=== PATIENT | female | born 1970 | race Caucasian/White ===

== ENCOUNTER 2016-11-12 21:41 | Emergency (ER) | payer SELFPAY ==
[~2016-11-12] VITALS: Ht 162.6 cm; Wt 85.0 kg
[~2016-11-12 21:41] MED LIST: AMOXICILLIN500 MG OR; AMOXIL500 MG OR; ANAPROX275 MG OR; ANTIVERT25 MG OR; ATARAX PO; CEPH500C57 OR; CEPHALEXIN500 MG OR; CIPRO500 MG OR; E.E.S. 400400 MG OR; FLEXERIL OR; FLEXERIL PO; FLONASE NASAL50 MCG; HYDROXYZ HCL25 MG OR; KEFLEX500 MG PO; LORTAB 10 OR; LORTAB 1010 MG PO; LORTAB 5 OR; LORTAB 7.5 OR; MOTRIN600 MG OR; NO HOME MEDS; OXYCO/APAP1 TA2 OR; PERCOCET 5/325M1 TAB OR; PREDNISONE20 MG PO; PROAIR HFA IN; PROVENTIL0.083 % IN; TESSALON PER100 MG PO; ULTRAM50 MG PO; XANAX0.25 MG OR; XANAX0.5 MG OR; XANAX1 MG OR; ZITHROMAX250 MG OR; ZITHROMAX250 MG PO; ZOFRAN ODT8 MG OR; [UNRECOGNIZED DRUG - OTHER] PO
[2016-11-12 22:32] LABS: HEMATOCRIT 37.9 % (37.0-47.0); HEMOGLOBIN 12.1 g/dl (12.0-16.0); IMMATURE GRANULOCYTES 0.3 % (0.0-1.0); MEAN CELL VOLUME 82.9 fL CALC (80.0-100.0); MEAN CORPUSCULAR HGB 26.5 pG CALC (26.0-32.0); MEAN CORPUSCULAR HGB CONC 31.9 g/L CALC (32.0-36.0); NEUT# 9.34 thou/uL (2.00-7.15); RED BLOOD COUNT 4.57 mill/uL (4.20-5.60); RED CELL DISTRI WIDTH 16.1 % (11.5-15.5); URINE BILIRUBIN - DIPSTICK NEGATIVE (NEGATIVE); URINE BLOOD DIPSTICK LARGE (NEGATIVE); URINE CLARITY CLEAR; URINE COLOR YELLOW; URINE GLUCOSE - DIPSTICK NEGATIVE (NEGATIVE); URINE KETONE NEGATIVE (NEGATIVE); URINE LEUK ESTERASE NEGATIVE (NEGATIVE); URINE NITRITE - DIPSTICK NEGATIVE (Negative); URINE PH 5.5 (4.5-8.0); URINE PROTEIN - DIPSTICK NEGATIVE (NEG-TRACE); URINE SPECIFIC GRAVITY <=1.005; URINE UROBILINOGEN - DIPSTICK 0.2 E.U./dL (0.2)
[2016-11-12 22:36] LABS: BARBITURATES NEGATIVE (NEGATIVE); COCAINE NEGATIVE (NEGATIVE); METHADONE NEGATIVE (NEGATIVE); OXCYCODONE NEGATIVE (NEGATIVE); TETRAHYDROCANNABIONOL NEGATIVE (NEGATIVE); TRICYLIC ANTIDEPRESSANTS NEGATIVE (NEGATIVE)
[2016-11-12 22:40] LABS: URINE RBC 25-50 RBC/hpf (0-5); URINE SQUAMOUS EPITHELIAL CELL FEW EPI/hpf (0-FEW)
[2016-11-12 23:04] LABS: ALBUMIN 4.2 g/dL (3.2-5.0); ALKALINE PHOSPHATASE 82 u/l (38-126); ANION GAP 13 (6-22 (CALC)); BILIRUBIN, TOTAL 0.4 mg/dL (0.0-1.4); BUN 11 mg/dL (7-17); BUN/CREATININE RATIO 17 (12-20 (CALC)); CALCIUM 9.3 mg/dL (8.4-10.2); CARBON DIOXIDE 24 mmol/l (22-30); CHLORIDE 106 mmol/l (95-108); CREATININE 0.6 mg/dL (0.5-1.0); GFR > 60 ML/MIN (>=60 (CALC)); GFR FOR AFR.AMER. > 60 ML/MIN (>=60 (CALC)); GLUCOSE 121 mg/dL (65-105); POTASSIUM 3.8 mmol/l (3.5-5.1); SGOT/AST 65 u/l (14-36); SGPT/ALT 39 u/l (9-52); SODIUM 138 mmol/l (137-146); TOTAL PROTEIN 7.9 g/dL (6.3-8.2)
[2016-11-12 23:16] LABS: MYOGLOBIN 72 ng/mL (0 - 62)
[2016-11-13 00:26] VITALS: BP 160/93
== END 2016-11-13 00:32 | disposition short-term general hospital (02) | DRG 282 ==
LOC: ED 21:41
PROVIDERS: Emergency Medicine
DX: I21.4 Non-ST elevation (NSTEMI) myocardial infarction (principal); M32.9 Systemic lupus erythematosus, unspecified; J45.909 Unspecified asthma, uncomplicated; F41.0 Panic disorder [episodic paroxysmal anxiety]; F17.210 Nicotine dependence, cigarettes, uncomplicated
CPT/HCPCS: J2060

== ENCOUNTER 2016-11-19 23:28 | Emergency (ER) | payer SELFPAY ==
[~2016-11-19] VITALS: Ht 162.6 cm; Wt 81.8 kg
[2016-11-20] MEDS ORDERED: LIPITOR80 M1 PO (00:04)
[2016-11-20] MEDS ORDERED: ASPIRIN81 MG PO (00:04)
[2016-11-20] MEDS ORDERED: METOPROL TAR25 MG PO (00:05)
[2016-11-20] MEDS ORDERED: LISINOPRIL10 MG PO (00:05)
[2016-11-20] MEDS ORDERED: BRILINTA90 MG PO (00:06)
[2016-11-20 00:43] LABS: HEMATOCRIT 33.3 % (37.0-47.0); HEMOGLOBIN 10.8 g/dl (12.0-16.0); IMMATURE GRANULOCYTES 0.3 % (0.0-1.0); MEAN CELL VOLUME 82.6 fL CALC (80.0-100.0); MEAN CORPUSCULAR HGB 26.8 pG CALC (26.0-32.0); MEAN CORPUSCULAR HGB CONC 32.4 g/L CALC (32.0-36.0); NEUT# 7.71 thou/uL (2.00-7.15); RED BLOOD COUNT 4.03 mill/uL (4.20-5.60); RED CELL DISTRI WIDTH 15.5 % (11.5-15.5)
[2016-11-20 00:44] LABS: URINE BILIRUBIN - DIPSTICK NEGATIVE (NEGATIVE); URINE BLOOD DIPSTICK NEGATIVE (NEGATIVE); URINE CLARITY CLEAR; URINE COLOR YELLOW; URINE GLUCOSE - DIPSTICK NEGATIVE (NEGATIVE); URINE KETONE NEGATIVE (NEGATIVE); URINE LEUK ESTERASE NEGATIVE (NEGATIVE); URINE NITRITE - DIPSTICK NEGATIVE (Negative); URINE PROTEIN - DIPSTICK NEGATIVE (NEG-TRACE); URINE SPECIFIC GRAVITY <=1.005; URINE UROBILINOGEN - DIPSTICK 0.2 E.U./dL (0.2)
[2016-11-20 00:47] LABS: BARBITURATES NEGATIVE (NEGATIVE); COCAINE NEGATIVE (NEGATIVE); METHADONE NEGATIVE (NEGATIVE); OXCYCODONE NEGATIVE (NEGATIVE); TETRAHYDROCANNABIONOL NEGATIVE (NEGATIVE); TRICYLIC ANTIDEPRESSANTS NEGATIVE (NEGATIVE)
[2016-11-20 01:15] LABS: ALBUMIN 4.1 g/dL (3.2-5.0); ALKALINE PHOSPHATASE 87 u/l (38-126); AMYLASE 95 u/l (30-110); ANION GAP 16 (6-22 (CALC)); BILIRUBIN, TOTAL 0.4 mg/dL (0.0-1.4); BUN 12 mg/dL (7-17); BUN/CREATININE RATIO 16 (12-20 (CALC)); CALCIUM 9.6 mg/dL (8.4-10.2); CARBON DIOXIDE 25 mmol/l (22-30); CHLORIDE 103 mmol/l (95-108); CREATININE 0.7 mg/dL (0.5-1.0); GFR > 60 ML/MIN (>=60 (CALC)); GFR FOR AFR.AMER. > 60 ML/MIN (>=60 (CALC)); GLUCOSE 101 mg/dL (65-105); LIPASE 162 u/l (23-300); POTASSIUM 4.2 mmol/l (3.5-5.1); SGOT/AST 31 u/l (14-36); SGPT/ALT 32 u/l (9-52); SODIUM 140 mmol/l (137-146)
[2016-11-20 06:39] VITALS: BP 113/58
== END 2016-11-20 06:40 | disposition short-term general hospital (02) | DRG 313 ==
LOC: ED 23:28
PROVIDERS: Emergency Medicine
DX: R07.9 Chest pain, unspecified (principal); I25.2 Old myocardial infarction; M32.9 Systemic lupus erythematosus, unspecified; R74.8 Abnormal levels of other serum enzymes; R10.9 Unspecified abdominal pain; D72.829 Elevated white blood cell count, unspecified; J45.909 Unspecified asthma, uncomplicated; F41.0 Panic disorder [episodic paroxysmal anxiety]
CPT/HCPCS: J1956; Q9967; S0164

== ENCOUNTER 2016-12-27 13:34 | Emergency (ER) | payer SELFPAY ==
[~2016-12-27] VITALS: Ht 162.6 cm; Wt 85.0 kg
[~2016-12-27 13:34] MED LIST changes: +ASPIRIN81 MG PO; +BRILINTA90 MG PO; +LIPITOR80 M1 PO; +LISINOPRIL10 MG PO; +METOPROL TAR25 MG PO
[2016-12-27 14:15] LABS: HEMATOCRIT 33.9 % (37.0-47.0); HEMOGLOBIN 10.6 g/dl (12.0-16.0); IMMATURE GRANULOCYTES 0.4 % (0.0-1.0); MEAN CELL VOLUME 84.5 fL CALC (80.0-100.0); MEAN CORPUSCULAR HGB 26.4 pG CALC (26.0-32.0); MEAN CORPUSCULAR HGB CONC 31.3 g/L CALC (32.0-36.0); NEUT# 6.76 thou/uL (2.00-7.15); RED BLOOD COUNT 4.01 mill/uL (4.20-5.60); RED CELL DISTRI WIDTH 17.2 % (11.5-15.5)
[2016-12-27 14:23] LABS: ALBUMIN 4.2 g/dL (3.2-5.0); ALKALINE PHOSPHATASE 95 u/l (38-126); ANION GAP 14 (6-22 (CALC)); BILIRUBIN, TOTAL 0.6 mg/dL (0.0-1.4); BUN 15 mg/dL (7-17); BUN/CREATININE RATIO 21 (12-20 (CALC)); CALCIUM 9.3 mg/dL (8.4-10.2); CARBON DIOXIDE 23 mmol/l (22-30); CHLORIDE 107 mmol/l (95-108); CREATININE 0.7 mg/dL (0.5-1.0); GFR > 60 ML/MIN (>=60 (CALC)); GFR FOR AFR.AMER. > 60 ML/MIN (>=60 (CALC)); GLUCOSE 97 mg/dL (65-105); LIPASE 180 u/l (23-300); POTASSIUM 4.4 mmol/l (3.5-5.1); SGOT/AST 30 u/l (14-36); SGPT/ALT 49 u/l (9-52); SODIUM 140 mmol/l (137-146); TOTAL PROTEIN 7.7 g/dL (6.3-8.2)
[2016-12-27 14:24] LABS: INTERNATIONAL NORMALIZED RATIO 0.9 RATIO (0.7-1.3); PROTHROMBIN TIME 9.9 SECONDS (9.0-12.5)
[2016-12-27 14:36] LABS: MYOGLOBIN 21 ng/mL (0 - 62)
[2016-12-27 15:04] LABS: URINE BILIRUBIN - DIPSTICK NEGATIVE (NEGATIVE); URINE BLOOD DIPSTICK LARGE (NEGATIVE); URINE CLARITY CLEAR; URINE COLOR YELLOW; URINE GLUCOSE - DIPSTICK NEGATIVE (NEGATIVE); URINE KETONE NEGATIVE (NEGATIVE); URINE LEUK ESTERASE NEGATIVE (NEGATIVE); URINE NITRITE - DIPSTICK NEGATIVE (Negative); URINE PROTEIN - DIPSTICK NEGATIVE (NEG-TRACE); URINE UROBILINOGEN - DIPSTICK 0.2 E.U./dL (0.2)
[2016-12-27 15:08] LABS: BARBITURATES NEGATIVE (NEGATIVE); COCAINE NEGATIVE (NEGATIVE); METHADONE NEGATIVE (NEGATIVE); OXCYCODONE NEGATIVE (NEGATIVE); TETRAHYDROCANNABIONOL NEGATIVE (NEGATIVE); TRICYLIC ANTIDEPRESSANTS NEGATIVE (NEGATIVE)
[2016-12-27 15:13] LABS: URINE SQUAMOUS EPITHELIAL CELL FEW EPI/hpf (0-FEW); URINE WBC 0-2 WBC/hpf (0-5)
[2016-12-27 18:11] VITALS: BP 143/80
== END 2016-12-27 18:20 | disposition home or self-care (01) | DRG 313 ==
LOC: ED 13:34
PROVIDERS: Emergency Medicine
DX: R07.89 Other chest pain (principal); I25.2 Old myocardial infarction; R11.0 Nausea

== ENCOUNTER 2017-01-18 19:35 | Emergency (ER) | payer SELFPAY ==
[~2017-01-18] VITALS: Ht 162.6 cm; Wt 80.0 kg
[2017-01-18 20:18] LABS: HEMATOCRIT 32.4 % (37.0-47.0); HEMOGLOBIN 10.4 g/dl (12.0-16.0); IMMATURE GRANULOCYTES 0.5 % (0.0-1.0); MEAN CELL VOLUME 82.2 fL CALC (80.0-100.0); MEAN CORPUSCULAR HGB 26.4 pG CALC (26.0-32.0); MEAN CORPUSCULAR HGB CONC 32.1 g/L CALC (32.0-36.0); NEUT# 6.5 thou/uL (2.00-7.15); RED BLOOD COUNT 3.94 mill/uL (4.20-5.60)
[2017-01-18] MEDS ORDERED: NITROSTAT0.4 MG SL (20:20)
[2017-01-18] MEDS ORDERED: FLEXERIL PO (20:21)
[2017-01-18 20:24] LABS: ALBUMIN 4.3 g/dL (3.2-5.0); ALKALINE PHOSPHATASE 90 u/l (38-126); ANION GAP 17 (6-22 (CALC)); BILIRUBIN, TOTAL 0.4 mg/dL (0.0-1.4); BUN 15 mg/dL (7-17); BUN/CREATININE RATIO 21 (12-20 (CALC)); CALCIUM 9.4 mg/dL (8.4-10.2); CARBON DIOXIDE 20 mmol/l (22-30); CHLORIDE 111 mmol/l (95-108); CREATININE 0.7 mg/dL (0.5-1.0); GFR > 60 ML/MIN (>=60 (CALC)); GFR FOR AFR.AMER. > 60 ML/MIN (>=60 (CALC)); GLUCOSE 89 mg/dL (65-105); LIPASE 129 u/l (23-300); POTASSIUM 3.8 mmol/l (3.5-5.1); SGOT/AST 25 u/l (14-36); SGPT/ALT 49 u/l (9-52); SODIUM 144 mmol/l (137-146); TOTAL PROTEIN 7.9 g/dL (6.3-8.2)
[2017-01-18 23:00] VITALS: BP 172/77
== END 2017-01-18 23:05 | disposition home or self-care (01) | DRG 313 ==
LOC: ED 19:35
PROVIDERS: Emergency Medicine
DX: R07.9 Chest pain, unspecified (principal); I10 Essential (primary) hypertension; I25.2 Old myocardial infarction; M32.9 Systemic lupus erythematosus, unspecified; F41.0 Panic disorder [episodic paroxysmal anxiety]; J45.909 Unspecified asthma, uncomplicated

== ENCOUNTER 2017-07-17 20:32 | Observation (INO) | payer BC ==
[~2017-07-17] VITALS: Ht 162.6 cm; Wt 100.0 kg
[~2017-07-17 20:32] MED LIST changes: +NITROSTAT0.4 MG SL
[2017-07-17 21:07] LABS: HEMATOCRIT 32.1 % (37.0-47.0); HEMOGLOBIN 10.1 g/dl (12.0-16.0); IMMATURE GRANULOCYTES 0.5 % (0.0-1.0); MEAN CELL VOLUME 81.3 fL CALC (80.0-100.0); MEAN CORPUSCULAR HGB 25.6 pG CALC (26.0-32.0); MEAN CORPUSCULAR HGB CONC 31.5 g/L CALC (32.0-36.0); NEUT# 8.69 thou/uL (2.00-7.15); RED BLOOD COUNT 3.95 mill/uL (4.20-5.60); RED CELL DISTRI WIDTH 15.9 % (11.5-15.5)
[2017-07-17 21:09] LABS: URINE BILIRUBIN - DIPSTICK NEGATIVE (NEGATIVE); URINE BLOOD DIPSTICK MODERATE (NEGATIVE); URINE COLOR YELLOW; URINE GLUCOSE - DIPSTICK NEGATIVE (NEGATIVE); URINE KETONE NEGATIVE (NEGATIVE); URINE LEUK ESTERASE NEGATIVE (NEGATIVE); URINE NITRITE - DIPSTICK NEGATIVE (Negative); URINE PROTEIN - DIPSTICK NEGATIVE (NEG-TRACE); URINE UROBILINOGEN - DIPSTICK 0.2 E.U./dL (0.2)
[2017-07-17 21:13] LABS: BARBITURATES NEGATIVE (NEGATIVE); COCAINE NEGATIVE (NEGATIVE); METHADONE NEGATIVE (NEGATIVE); OXCYCODONE NEGATIVE (NEGATIVE); TETRAHYDROCANNABIONOL NEGATIVE (NEGATIVE); TRICYLIC ANTIDEPRESSANTS NEGATIVE (NEGATIVE); URINE CLARITY CLEAR
[2017-07-17 21:19] LABS: ALBUMIN 4.1 g/dL (3.2-5.0); ALKALINE PHOSPHATASE 103 u/l (38-126); ANION GAP 19 (6-22 (CALC)); BILIRUBIN, TOTAL 0.2 mg/dL (0.0-1.4); BUN 14 mg/dL (7-17); BUN/CREATININE RATIO 20 (12-20 (CALC)); CARBON DIOXIDE 20 mmol/l (22-30); CHLORIDE 104 mmol/l (95-108); CREATININE 0.7 mg/dL (0.5-1.0); GFR > 60 ML/MIN (>=60 (CALC)); GFR FOR AFR.AMER. > 60 ML/MIN (>=60 (CALC)); POTASSIUM 3.8 mmol/l (3.5-5.1); SGOT/AST 25 u/l (14-36); SGPT/ALT 40 u/l (9-52); SODIUM 138 mmol/l (137-146); TOTAL PROTEIN 7.9 g/dL (6.3-8.2)
[2017-07-17 21:21] LABS: URINE SQUAMOUS EPITHELIAL CELL FEW EPI/hpf (0-FEW); URINE WBC 0-2 WBC/hpf (0-5)
[2017-07-17 21:29] LABS: MYOGLOBIN 21 ng/mL (0 - 62)
[2017-07-18 03:55] VITALS: BP 134/81
[2017-07-18 09:00] VITALS: BP 132/85
[2017-07-18 09:55] LABS: CHOLESTEROL HDL RATIO 3.4 (<4.4 (CALC)); HDL CHOLESTEROL 49 mg/dL (>=40); MAGNESIUM 1.7 mg/dL (1.6-2.3); TOTAL CHOLESTEROL 167 mg/dl (0-199); VLDL CHOLESTROL 93 mg/dl (1-41 (CALC))
[2017-07-18 09:57] LABS: TOTAL TRIGLYCERIDES 466 mg/dl (30-149)
[2017-07-18 12:31] VITALS: BP 143/51
[2017-07-18] MEDS ORDERED: ALPRAZOLAM0.5 M2 PO (13:28)
[2017-07-18] MEDS ORDERED: LORTAB 5/3255 MG PO ×2 (17:19→18:13)
== END 2017-07-18 18:33 | disposition home or self-care (01) | DRG 313 ==
LOC: ED 20:32 → ED-I 21:50 → ED 22:01 → MS2 22:02
PROVIDERS: Emergency Medicine; ADMIT Internal Medicine; ATTEND Internal Medicine
DX: R07.89 Other chest pain (principal); I25.10 Atherosclerotic heart disease of native coronary artery without angina pectoris; I10 Essential (primary) hypertension; E78.5 Hyperlipidemia, unspecified; I35.1 Nonrheumatic aortic (valve) insufficiency; M32.9 Systemic lupus erythematosus, unspecified; J45.909 Unspecified asthma, uncomplicated; F41.0 Panic disorder [episodic paroxysmal anxiety]; G89.29 Other chronic pain; M54.9 Dorsalgia, unspecified; I25.2 Old myocardial infarction; Z87.891 Personal history of nicotine dependence; Z95.5 Presence of coronary angioplasty implant and graft; Z91.14 Patient's other noncompliance with medication regimen
CPT/HCPCS: G0378; J2060

== ENCOUNTER 2017-11-22 21:53 | Observation (INO) | payer BC ==
[~2017-11-22] VITALS: Ht 162.6 cm; Wt 98.4 kg
[~2017-11-22 21:53] MED LIST changes: +ALPRAZOLAM0.5 M2 PO; +LORTAB 5/3255 MG PO
[2017-11-22] MEDS ORDERED: LASIX 80 MG TAB80 M1 PO (22:27)
[2017-11-22 22:32] LABS: HEMOGLOBIN 10.2 g/dl (12.0-16.0); IMMATURE GRANULOCYTES 0.6 % (0.0-5.0); MEAN CELL VOLUME 76.7 fL CALC (80.0-100.0); NEUT# 8.84 thou/uL (2.00-7.15); RED BLOOD COUNT 4.43 mill/uL (4.20-5.60); RED CELL DISTRI WIDTH 18.9 % (11.5-15.5)
[2017-11-22 22:46] LABS: ALBUMIN 4.5 g/dL (3.2-5.0); ALKALINE PHOSPHATASE 102 u/l (38-126); AMYLASE 103 u/l (30-110); ANION GAP 23 (6-22 (CALC)); BILIRUBIN, TOTAL 0.2 mg/dL (0.0-1.4); BUN 9 mg/dL (7-17); BUN/CREATININE RATIO 13 (12-20 (CALC)); CARBON DIOXIDE 16 mmol/l (22-30); CHLORIDE 106 mmol/l (95-108); CREATININE 0.7 mg/dL (0.5-1.0); GFR > 60 ML/MIN (>=60 (CALC)); GFR FOR AFR.AMER. > 60 ML/MIN (>=60 (CALC)); LIPASE 107 u/l (23-300); POTASSIUM 3.1 mmol/l (3.5-5.1); SGOT/AST 29 u/l (14-36); SGPT/ALT 41 u/l (9-52); SODIUM 142 mmol/l (137-146); TOTAL PROTEIN 8.6 g/dL (6.3-8.2)
--- NOTE | 2017-11-22 22:54 | NUR ---
XRAY AT BEDSIDE
[2017-11-22 22:58] LABS: MYOGLOBIN 19 ng/mL (0 - 62)
[2017-11-22 23:07] LABS: ACT PARTIAL THROMBO TIME 24.7 SECONDS (20.0-32.5); D-DIMER 0.42 mg/L (0.19-0.60); INTERNATIONAL NORMALIZED RATIO 0.9 RATIO (0.7-1.3); PROTHROMBIN TIME 10.4 SECONDS (9.0-12.5)
--- NOTE | 2017-11-22 23:07 | NUR ---
FEELS BETTER....WORSE WHEN SHE MOVES.
--- NOTE | 2017-11-22 23:58 | NUR ---
REPORT TO YUDY
[2017-11-23] VITALS (7 sets, daily range): BP systolic 106–130; BP diastolic 68–76
--- NOTE | 2017-11-23 00:02 | NUR ---
TO FLOOR WITH PT ON MONITOR/O2 @ 2 LPM NC. PT FEELS BETTER. CALMER. DECREASED CP. A/O PWD/RESP EASY REG/LUNGS CLEAR/HEART SOUNDS NORMAL. ABD SOFT NON TENDER/WITHOUT EDEMA.
--- NOTE | 2017-11-23 00:15 | NUR ---
PT ARRIVED TO UNIT VIA STRETCHER WITH ER STAFF WITH ; ALERT AND ORIENTED. AMBULATED TO BATHROOM WITH UNSTEADY GAIT AND USING OBJECTS FOR STABILIZATION. C/O SUBSTERNAL CP 5/10 THAT RADIATES DOWS LEFT ARM AND TO MID BACK; SHE STATES THAT IS HAS IMPROVED SINCE ARRIVAL. NITRO PASTE TO LEFT ANTERIOR CHEST. TELE ON. RESPIRATIONS EVEN AND UNLABORED ON OXYGEN. 95% ON RA; WILL KEEP O2 ON FOR COMFORT. ORIENTED TO ROOM AND CALL LIGHT SYSTEM. ASSESSMENT COMPLETED. PLAN OF CARE DISCUSSED. PT ENCOURAGED TO VERBALIZE CONCERNS. STATES UNDERSTANDING AND REQUESTS MEDICATION FOR HER LOWER AND MID BACK PAIN. SAFETY MEASURES IN PLACE. CALL LIGHT WITHIN REACH.
--- NOTE | 2017-11-23 04:09 | NUR ---
PT ASLEEP AT THIS TIME WITH NO SIGNS OF DISTRESS. RESPIRATIONS EVEN AND UNLABORED ON ROOM AIR. FAMILY MEMBER REMAINS AT BEDSIDE. VS STABLE. SAFETY MEASURES IN PLACE. CALL LIGHT WITHIN REACH.
--- NOTE | 2017-11-23 05:32 | NUR ---
PT REPORTS MILD CP AND STATES SHE IS HAVING DIFFICULTY MOVING HER LEFT ARM. "IT'S JUST LIKE WHEN I CAME IN LAST NIGHT. WHEN THE PAIN IS HERE, I CAN'T MOVE, BUT WHEN THE PAIN GOES AWAY I CAN." NITRO PASTE REPLACED AND APPLIED TO GUILLERMO. NEURO CHECK WNL BUT FOR THE WEAKNESS TO LEFT ARM.
--- NOTE | 2017-11-23 08:47 | NUR ---
PT RESTING IN BED, NO SIGNS OF DISTRESS NOTED, RESP EVEN AND UNLABORED. PT ALERT AND ORIENTED X3, C/O LOWER BACK PAIN, WARM PACKS GIVEN. DISCUSSED POC, ASSESSMENT COMPLETED. CALL LIGHT IN REACH,CONTINUE TO MONITOR.
[2017-11-23 09:53] LABS: MAGNESIUM 1.7 mg/dL (1.6-2.3); POTASSIUM 3.5 mmol/l (3.5-5.1)
--- NOTE | 2017-11-23 11:33 | NUR ---
AND GARRET AT BEDSIDE SPEAKING TO PT AND .
--- NOTE | 2017-11-23 11:41 | NUR ---
PT SITTING IN BED, LAB AT BEDSIDE, PT MEDICATED WITH 10MEQ OF POTASSIUM. CALL LIGHT IN REACH,CONTINUE TO MONITOR.
[2017-11-23 12:44] LABS: CHOLESTEROL HDL RATIO 3.7 (<4.4 (CALC))
--- NOTE | 2017-11-23 14:20 | NUR ---
PT SITTING ON BED WATCHING TV, EDUCATED PT ON VENOFER INFUSION, PT IN AGREEMENT. INITATED VENOFER. CALL LIGHT IN REACH,CONTINUE TO MONITOR.
--- NOTE | 2017-11-23 15:30 | NUR ---
PT GIVEN MOM WITH WARM PRUNE JUICE TO ATTEMPT TO HAVE A BM, SAMPLE NEEDED. PT IN AGREEMENT. CALL LIGHT IN REACH,CONTINUE TO MONITOR.
[2017-11-23 18:01] LABS: URINE BILIRUBIN - DIPSTICK NEGATIVE (NEGATIVE); URINE BLOOD DIPSTICK LARGE (NEGATIVE); URINE COLOR YELLOW; URINE GLUCOSE - DIPSTICK NEGATIVE (NEGATIVE); URINE KETONE NEGATIVE (NEGATIVE); URINE LEUK ESTERASE NEGATIVE (NEGATIVE); URINE NITRITE - DIPSTICK NEGATIVE (Negative); URINE PH 5.5 (4.5-8.0); URINE PROTEIN - DIPSTICK NEGATIVE (NEG-TRACE); URINE SPECIFIC GRAVITY <=1.005; URINE UROBILINOGEN - DIPSTICK 0.2 E.U./dL (0.2)
[2017-11-23 18:05] LABS: URINE CLARITY CLEAR
[2017-11-23 18:07] LABS: URINE RBC TNTC RBC/hpf (0-5); URINE SQUAMOUS EPITHELIAL CELL FEW EPI/hpf (0-FEW)
--- NOTE | 2017-11-23 19:32 | NUR ---
REPORT GIVEN BY EBEN EDMONDS. PATIENT RESTING WITH EYES CLOSED AND SNORING. RESP EVEN AND UNLABORED. NO S/S OF DISTRESS NOTED. FALL PRECAUTIONS IN PLACE. WILL DISCUSS PLAN OF CARE ONCE PATIENT AWAKES.
--- NOTE | 2017-11-23 20:49 | NUR ---
SPOUSE AT BEDSIDE. PLAN OF CARE DISCUSSED, FALL PRECATUIONS IN PLACE, AND PATIENT INFORMED TO CALL WITH ANY QUESTIONS OR CONCERNS. PATIENT MEDICATED PER MD ORDERS.
--- NOTE | 2017-11-24 00:34 | NUR ---
PATIENT AWAKE AND WATCHING TV WITH SPOUSE AT THE BEDSIDE. RESP EVEN AND UNLABORED. NO S/S OF DISTRESS NOTED.
[2017-11-24 05:09] VITALS: BP 102/63
[2017-11-24 05:47] LABS: HEMATOCRIT 30.6 % (37.0-47.0); MEAN CELL VOLUME 78.5 fL CALC (80.0-100.0); MEAN CORPUSCULAR HGB 23.1 pG CALC (26.0-32.0); MEAN CORPUSCULAR HGB CONC 29.4 g/L CALC (32.0-36.0); RED BLOOD COUNT 3.9 mill/uL (4.20-5.60)
[2017-11-24 05:53] LABS: ANION GAP 10 (6-22 (CALC)); BUN 11 mg/dL (7-17); BUN/CREATININE RATIO 17 (12-20 (CALC)); CHLORIDE 109 mmol/l (95-108); CREATININE 0.6 mg/dL (0.5-1.0); GFR > 60 ML/MIN (>=60 (CALC)); GFR FOR AFR.AMER. > 60 ML/MIN (>=60 (CALC)); SODIUM 139 mmol/l (137-146)
[2017-11-24 05:54] LABS: CARBON DIOXIDE 24 mmol/l (22-30); POTASSIUM 4.4 mmol/l (3.5-5.1)
--- NOTE | 2017-11-24 08:00 | NUR ---
PT RESTING IN BED, C/O NAUSEA. PT MEDICATED. PT STATES SHE DOES NOTE FEEL WELL AND HAS NOT HAD A BM. DISCUSSED POC AND INFORMED PT THAT SHE WILL BE GIVEN SOMETHING FOR CONSTIPATION. ASSESSMENT COMPLETED AT THIS TIME. CALL LIGHT IN REACH,CONTINUE TO MONITOR.
--- NOTE | 2017-11-24 08:55 | NUR ---
PT C/O NUMBNESS TO L ARM AND CAN'T MOVE IT, STATES SHE HAS PRESSURE TO HER CHEST. STAT EKG OBTAINED AND TROPONIN. PT DOES NOT APPEAR IN ANY DISTRESS. RESP EVEN AND UNLABORED. FEED PROJECT ENGINEER NOTIFIED.
[2017-11-24] MEDS ORDERED: BRILINTA90 MG PO (09:21)
[2017-11-24] MEDS ORDERED: NITROSTAT0.4 MG SL (09:21)
[2017-11-24] MEDS ORDERED: LISINOPRIL20 M1 PO (09:21)
[2017-11-24] MEDS ORDERED: FUROSEMIDE20 MG PO (09:21)
[2017-11-24] MEDS ORDERED: ALPRAZOLAM0.5 M2 PO (09:21)
[2017-11-24] MEDS ORDERED: LIPITOR80 M1 PO (09:21)
[2017-11-24] MEDS ORDERED: LORTAB 5/3255 MG PO (09:21)
[2017-11-24] MEDS ORDERED: PANTOPRAZOLE SO40 M1 PO (09:21)
[2017-11-24] MEDS ORDERED: ASPIRIN81 MG PO (09:21)
[2017-11-24] MEDS ORDERED: FERR SULFATE325 MG PO (09:21)
[2017-11-24] MEDS ORDERED: LOPRESSOR 550 MG/TAB PO (09:21)
[2017-11-24] MEDS ORDERED: MEDDOSEPAK PO (09:33)
[2017-11-24 10:45] VITALS: BP 113/71
[2017-11-24 11:53] VITALS: BP 113/71
--- NOTE | 2017-11-24 13:26 | NUR ---
INFORMED PT OF SUPPOSITORY PT IN AGREEMENT. PT TOLERATED WELL, WILL AWAIT RESULTS.
--- NOTE | 2017-11-24 15:00 | NUR ---
PT GIVEN VARIOUS EDUCATION REGARDING CARDIAC DIETS, IRON ENRICHED FOODS. DISCUSSED PLAN FOR DISCHARGE. PT GIVEN ORDERS FOR OUTPT LAB DROP OFF AND SUPPLIES FOR STOOL GIVEN. ALL PRESCRIPTIONS PROVIDED TO PT, IV SITE REMOVED, CATHETER INTACT. PT STATES SHE WILL NOT HAVE A RIDE HOME UNTIL 5.
--- NOTE | 2017-11-24 15:46 | NUR ---
Discharge instructions given. Patient verbalizes understanding of same. Discharged in stable condition via Wheelchair to Home with friend. All belongings sent with pt.
== END 2017-11-24 15:50 | disposition home or self-care (01) | DRG 313 ==
LOC: ED 21:53 → ED-I 23:00 → ED 23:46 → MS2 23:47
PROVIDERS: Family Medicine; Nurse Practitioner Family; ADMIT Internal Medicine; ATTEND Internal Medicine
DX: R07.89 Other chest pain (principal); I11.0 Hypertensive heart disease with heart failure; I50.9 Heart failure, unspecified; I25.10 Atherosclerotic heart disease of native coronary artery without angina pectoris; D50.9 Iron deficiency anemia, unspecified; E78.5 Hyperlipidemia, unspecified; I35.1 Nonrheumatic aortic (valve) insufficiency; J44.9 Chronic obstructive pulmonary disease, unspecified; E87.6 Hypokalemia; M32.9 Systemic lupus erythematosus, unspecified; E66.01 Morbid (severe) obesity due to excess calories; F41.0 Panic disorder [episodic paroxysmal anxiety]; G89.4 Chronic pain syndrome; I25.2 Old myocardial infarction; Z95.5 Presence of coronary angioplasty implant and graft; Z91.120 Patient's intentional underdosing of medication regimen due to financial hardship; Z87.891 Personal history of nicotine dependence; Z68.36 Body mass index [BMI] 36.0-36.9, adult; Z79.02 Long term (current) use of antithrombotics/antiplatelets; Z79.82 Long term (current) use of aspirin
CPT/HCPCS: G0378; J1650; J1756

== ENCOUNTER 2018-03-29 20:52 | Observation (INO) | payer BC ==
[~2018-03-29] VITALS: Ht 162.6 cm; Wt 98.0 kg
[~2018-03-29 20:52] MED LIST changes: +FERR SULFATE325 MG PO; +FUROSEMIDE20 MG PO; +LASIX 80 MG TAB80 M1 PO; +LISINOPRIL20 M1 PO; +LOPRESSOR 550 MG/TAB PO; +MEDDOSEPAK PO; +PANTOPRAZOLE SO40 M1 PO
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
[2018-03-29 21:50] LABS: HEMATOCRIT 33.5 % (37.0-47.0); HEMOGLOBIN 10.3 g/dl (12.0-16.0); IMMATURE GRANULOCYTES 0.6 % (0.0-5.0); MEAN CORPUSCULAR HGB 24.6 pG CALC (26.0-32.0); MEAN CORPUSCULAR HGB CONC 30.7 g/L CALC (32.0-36.0); NEUT# 9.12 thou/uL (2.00-7.15); RED BLOOD COUNT 4.19 mill/uL (4.20-5.60)
[2018-03-29 22:04] LABS: ALBUMIN 4.4 g/dL (3.2-5.0); ALKALINE PHOSPHATASE 98 u/l (38-126); AMYLASE 102 u/l (30-110); ANION GAP 16 (6-22 (CALC)); BILIRUBIN, TOTAL 0.4 mg/dL (0.0-1.4); BUN 11 mg/dL (7-17); BUN/CREATININE RATIO 15 (12-20 (CALC)); CARBON DIOXIDE 22 mmol/l (22-30); CHLORIDE 104 mmol/l (95-108); CREATININE 0.7 mg/dL (0.5-1.0); GFR > 60 ML/MIN (>=60 (CALC)); GFR FOR AFR.AMER. > 60 ML/MIN (>=60 (CALC)); LIPASE 159 u/l (23-300); POTASSIUM 4.2 mmol/l (3.5-5.1); SGOT/AST 23 u/l (14-36); SODIUM 139 mmol/l (137-146); TOTAL PROTEIN 7.9 g/dL (6.3-8.2)
[2018-03-29 22:13] LABS: ACT PARTIAL THROMBO TIME 26.1 SECONDS (20.0-32.5); D-DIMER 0.51 mg/L (0.19-0.60)
[2018-03-29 22:16] LABS: MYOGLOBIN 24 ng/mL (0 - 62)
--- NOTE | 2018-03-29 22:55 | NUR ---
PT IS REMEDICATED FOR PAIN IN HER MIDBACK AND CHEST SR NO ECTOPY W/P/D SKIN
[2018-03-30] VITALS (8 sets, daily range): BP systolic 106–139; BP diastolic 56–74
--- NOTE | 2018-03-30 01:00 | NUR ---
PT IS PAINFREE SR NO ECTOPY W/P/D SKIN
--- NOTE | 2018-03-30 02:30 | NUR ---
SR NO ECTOPY REMAINS PAINFREE SLEEPING IN [place]S
--- NOTE | 2018-03-30 03:55 | NUR ---
PHONE REPORT TO NURSE JIMENES ON MS
--- NOTE | 2018-03-30 04:00 | NUR ---
TO MS RM 260 VIA TELE WC IN STABLE PAINFREE CONDITION
--- NOTE | 2018-03-30 04:00 | NUR ---
TO MS RM 260 ON TELE VIA WC IN IMPROVED STABLE CONDITION
--- NOTE | 2018-03-30 04:08 | NUR ---
PT ARRIVED TO UNIT VIA WHEELCHAIR WITH ER STAFF AND ; AMBULATED TO BED WITH STEADY GAIT. REPORTS MIDSTERNAL CHEST PAIN /, STATES THAT IT IS SLOWLY COMING BACK. RESPIRATIONS EVEN AND UNLABORED ON ROOM AIR. ORIENTED TO ROOM AND CALL LIGHT SYSTEM. PLAN OF CARE DISCUSSED. PT ENCOURAGED TO VERBALIZE CONCERNS. STATES UNDERSTANDING. REQUESTS SNACK AND DRINK; PROVIDED AT THIS TIME. SAFETY MEASURES IN PLACE. CALL LIGHT WTIHIN REACH.
--- NOTE | 2018-03-30 06:28 | NUR ---
PT REPORTS THAT MIDBACK PAIN HAS RETURNED AND IS AN 8/10; REQUESTS PAIN MEDICATION. MORPHINE GIVEN AT THIS TIME. BLOOD PRESSURE 96/60; NITRO PASTE REMOVED FROM LEFT CHEST AND SCHEDULED DOSE HELD.
--- NOTE | 2018-03-30 07:25 | NUR ---
REPORT RECEIVED FROM [place] JIMENES; PT SITTING UP IN BED AWAKE ALERT AND WORKING ON HER PHONE.
--- NOTE | 2018-03-30 07:36 | NUR ---
ASSESSMENT COMPLETED; PT SITTING UP IN BED; A/O; RESP EVEN AND UNLABORED; TELE IN PLACE; LUNGS CLEAR; ABD SOFT DISTENDED, LAST BM 03/29; VOIDED 700CC CLEAR, KURT URINE; REDNESS NOTED TO L BREAST, PT APPLIED POWDER; RADIAL PULSES STRONG; PEDAL PULSE WEAK; IV #20 RH, FLUSHED FREELY, SITE APPEARS HEALTHY; PAIN SCALE 3/10, MDICATION EFFECTIVE; ST STATES FEELS MUCH BETTER NOW; CALL LYON IN REACH, SAFETY PRECAUTION REINFORCE;
--- NOTE | 2018-03-30 12:27 | NUR ---
COMPLAIN OF PAIN 9/10 MIDSTERNAL; MEDICATED WITH MORPHINE; TOLERATED WELL; FAMILY AT BEDSIDE; RESP EVEN AND UNLABORED; NO S/S OF DISTRESS NOTED; TELE IN PLACE; SAFETY PRECAUTION REINFORCE;
--- NOTE | 2018-03-30 13:37 | NUR ---
DR JOHNSON AND GARRET VASQUEZ AT BEDSIDE TO DISCUSS POC
--- NOTE | 2018-03-30 16:02 | NUR ---
PT LAYING IN BED AWAKE VISITING WITH FAMILY; RESP EVEN AND UNLABORED; VOICE NO CONCERNS; CALL LYON IN REACH.
--- NOTE | 2018-03-30 19:00 | NUR ---
RECEIVED REPORT FROM DAY SHIFT NURSE. PT RSTING IN BED WITH VISITOR AT BEDSIDE. NO NEEDS AT THIS TIME. CALL LYON IN REACH. WILL CONTINUE TO MONITOR.
--- NOTE | 2018-03-30 19:10 | NUR ---
PT COMPLAIN OF PAIN 11/05; MEDICATED WITH MORPHINE; PT TALKING ON PHONE & WATCHING TV; NO S/O OF DISTRESS NOTED; CALL LYON IN REACH.
--- NOTE | 2018-03-30 20:22 | NUR ---
PT REQUESTING TO GO OUTSIDE FOR SOME AIR. PT TOLD SHE HAD DILAUDID, NITRO AND IV PLACED THEREFORE ITS NOT A GOOD IDEA. PT VERBALIZES UNDERSTANDING. ASSESMENT COMPLETED AT THIS TIME (SEE INTERVENTIONS) LUNG SOUND CLEAR, HEART SOUND NORMAL, BOWEL SOUNDS ACTIVE, SCANT EDEMA TO LEGS BILAT. IV FLUSHES WELL. NO REDNESS OR EDEMA NOTED. NO OTHER NEEDS AT THIS TIME. CALL LYON IN REACH. WILL CONTINUE TO MONITOR.
[2018-03-31] VITALS (7 sets, daily range): BP systolic 109–139; BP diastolic 59–71
--- NOTE | 2018-03-31 | NUR ---
PT RESTIN IN BED WATCHING TV. C/O PAIN. NO OTHER NEEDS AT THIS TIME. CALL LYON IN REACH. WILL CONTINUE TO MONITR.
--- NOTE | 2018-03-31 04:00 | NUR ---
PT CECILIA AND ON THE PHONE. NO NEEDS AT THIS TIME. CALL LYON IN REACH. WILL CONTINUE TO MONITOR.
[2018-03-31 05:33] LABS: HEMATOCRIT 31.7 % (37.0-47.0); HEMOGLOBIN 9.7 g/dl (12.0-16.0); IMMATURE GRANULOCYTES 0.4 % (0.0-5.0); MEAN CELL VOLUME 81.1 fL CALC (80.0-100.0); MEAN CORPUSCULAR HGB 24.8 pG CALC (26.0-32.0); MEAN CORPUSCULAR HGB CONC 30.6 g/L CALC (32.0-36.0); NEUT# 5.8 thou/uL (2.00-7.15); RED BLOOD COUNT 3.91 mill/uL (4.20-5.60); RED CELL DISTRI WIDTH 16.7 % (11.5-15.5)
[2018-03-31 05:35] LABS: ANION GAP 12 (6-22 (CALC)); BUN 12 mg/dL (7-17); BUN/CREATININE RATIO 20 (12-20 (CALC)); CARBON DIOXIDE 23 mmol/l (22-30); CHLORIDE 106 mmol/l (95-108); CREATININE 0.6 mg/dL (0.5-1.0); GFR > 60 ML/MIN (>=60 (CALC)); GFR FOR AFR.AMER. > 60 ML/MIN (>=60 (CALC)); MAGNESIUM 1.8 mg/dL (1.6-2.3); POTASSIUM 4.1 mmol/l (3.5-5.1); SODIUM 138 mmol/l (137-146)
--- NOTE | 2018-03-31 06:55 | NUR ---
REPORT RECEIVED FROM [facility]; PT SITTING UP IN BED WATCHING TV; VOICE NO CONCERNS; AWARE WE NEED A UA, CLEAN HAT PROVIDED FOR CLEAN CATCH; CALL LYON IN REACH.
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
[2018-03-31 08:21] LABS: URINE BILIRUBIN - DIPSTICK NEGATIVE (NEGATIVE); URINE BLOOD DIPSTICK NEGATIVE (NEGATIVE); URINE COLOR YELLOW; URINE GLUCOSE - DIPSTICK NEGATIVE (NEGATIVE); URINE KETONE NEGATIVE (NEGATIVE); URINE LEUK ESTERASE TRACE (NEGATIVE); URINE NITRITE - DIPSTICK NEGATIVE (Negative); URINE PROTEIN - DIPSTICK NEGATIVE (NEG-TRACE); URINE SPECIFIC GRAVITY <=1.005; URINE UROBILINOGEN - DIPSTICK 0.2 E.U./dL (0.2)
--- NOTE | 2018-03-31 09:27 | NUR ---
DR PALACIOS AND GARRET VASQUEZ AT BED SIDE TO DISCUSS POC
--- NOTE | 2018-03-31 11:42 | NUR ---
PT LAYING IN BED AWAKE STATES "I WILL MAKE HER MAD BECAUSE I'M NOT GONNA LET THEM TRANSFER ME" VITALS OBTAINED; MEDICATED PER EMAR; CALL LYON IN REACH.
--- NOTE | 2018-03-31 13:35 | NUR ---
PT COMPLAIN OF BACK PAIN 12/05; MEDICATED WITH LORATAB PT STATED "THIS WILL NOT DO ANYTHING, WHEN I GO IN THAT BUMPY ASS RIDE, THEY SHOULD HAVE GIVEN ME SOMETHING STRONGER" NO S/S OF DISTRESS NOTED; PT AWARE OF BEING TRF TO [facility]; STATED " I DON'T WANT TO GO"
--- NOTE | 2018-03-31 15:45 | NUR ---
DC INSTRUCTIONS GIVEN TO PT; PT VERBALIZED UNDERSTANDING; WOULD LIKE A PAIN PILL BEFORE SHE GOES; NO OTHER CONCERS;
--- NOTE | 2018-03-31 16:58 | NUR ---
PT SITTING UP IN BED WATCHING TV, FAMILY AT BEDSIDE; PT REQ PAIN MED, MEDICATED WITH LORATAB PAIN SCALE 7/10; WAITING FOR TRANSPERTAION TO 'S HOSP.
--- NOTE | 2018-03-31 17:10 | NUR ---
PT AWARE THAT RIDE WILL BE LATER THAN ANTICIPATED; PT STATES "IT OK"
--- NOTE | 2018-03-31 17:35 | NUR ---
PT CAME UP TO DESK WITH FAMILY MEMBER STATED THAT "I'M GOING TO [facility]; MY DR SANDHU IS AWARE THAT I'M COMING, HE TOLD ME TO GO TO ER REGISTRATION WHEN I GET THERE" PT SIGNED AMA FORM; PT LEFT IN STABLE CONDITION VIA W/C WITH FAMILY MEMBER;
== END 2018-03-31 17:38 | disposition left against medical advice (07) | DRG 303 ==
LOC: ED 20:52 → ED-I 22:15 → ED 03-30 01:56 → MS2 03-30 01:57
PROVIDERS: Family Medicine; Nurse Practitioner Family; ADMIT Internal Medicine Nephrology; ATTEND Internal Medicine Nephrology
DX: I25.110 Atherosclerotic heart disease of native coronary artery with unstable angina pectoris (principal); I11.0 Hypertensive heart disease with heart failure; I50.9 Heart failure, unspecified; I35.1 Nonrheumatic aortic (valve) insufficiency; E78.5 Hyperlipidemia, unspecified; F41.0 Panic disorder [episodic paroxysmal anxiety]; J45.909 Unspecified asthma, uncomplicated; D50.9 Iron deficiency anemia, unspecified; G89.29 Other chronic pain; M54.9 Dorsalgia, unspecified; L93.0 Discoid lupus erythematosus; E66.9 Obesity, unspecified; I25.2 Old myocardial infarction; Z95.5 Presence of coronary angioplasty implant and graft; Z87.891 Personal history of nicotine dependence; Z68.34 Body mass index [BMI] 34.0-34.9, adult
CPT/HCPCS: G0378; Q9967

== ENCOUNTER → 2018-05-10 | Outpatient (REF) | END | disposition home or self-care (01) | DRG 556 | LOC: LAB 08:41 | PROVIDERS: ATTEND Internal Medicine Rheumatology | DX: M25.50 Pain in unspecified joint (principal); Z87.39 Personal history of other diseases of the musculoskeletal system and connective tissue; M79.0 Rheumatism, unspecified ==

== ENCOUNTER 2018-07-12 15:16 | Emergency (ER) | payer BC ==
[~2018-07-12] VITALS: Ht 162.6 cm; Wt 96.0 kg
[2018-07-12] MEDS ORDERED: BRILINTA90 MG PO (15:40)
[2018-07-12] MEDS ORDERED: METOPROLOL TAR100 MG PO (15:41)
[2018-07-12] MEDS ORDERED: ASPIRIN EC LOW81 MG PO (15:41)
[2018-07-12] MEDS ORDERED: LISINOPRIL20 M1 PO (15:42)
[2018-07-12] MEDS ORDERED: ALPRAZOLAM1 MG PO (15:42)
[2018-07-12] MEDS ORDERED: LASIX 20 MG TAB20 MG PO (15:43)
[2018-07-12] MEDS ORDERED: EFFEXOR75 MG PO (15:44)
[2018-07-12] MEDS ORDERED: ATORVASTATIN CA80 MG PO (15:44)
[2018-07-12] MEDS ORDERED: ESCITALOPRAM OX20 MG PO (15:44)
[2018-07-12] MEDS ORDERED: FOLIC ACID1 M1 PO (15:45)
[2018-07-12] MEDS ORDERED: MEDDOSEPAK PO (15:57)
[2018-07-12] MEDS ORDERED: PEPCID20 MG PO (15:57)
[2018-07-12] MEDS ORDERED: ZYRTEC10 M3 PO (15:57)
[2018-07-12 16:04] VITALS: BP 128/73
== END 2018-07-12 16:04 | disposition home or self-care (01) | DRG 607 ==
LOC: ED 15:16
DX: L50.0 Allergic urticaria (principal)

== ENCOUNTER 2019-02-09 11:53 | Emergency (ER) | payer BC ==
[~2019-02-09] VITALS: Ht 162.6 cm; Wt 89.0 kg
[~2019-02-09 11:53] MED LIST changes: +ALPRAZOLAM1 MG PO; +ASPIRIN EC LOW81 MG PO; +ATORVASTATIN CA80 MG PO; +EFFEXOR75 MG PO; +ESCITALOPRAM OX20 MG PO; +FOLIC ACID1 M1 PO; +LASIX 20 MG TAB20 MG PO; +METOPROLOL TAR100 MG PO; +PEPCID20 MG PO; +ZYRTEC10 M3 PO
[2019-02-09 13:34] LABS: HEMATOCRIT 44.1 % (37.0-47.0); HEMOGLOBIN 14.2 g/dl (12.0-16.0); IMMATURE GRANULOCYTES 0.3 % (0.0-5.0); MEAN CELL VOLUME 91.7 fL CALC (80.0-100.0); MEAN CORPUSCULAR HGB 29.5 pG CALC (26.0-32.0); MEAN CORPUSCULAR HGB CONC 32.2 g/L CALC (32.0-36.0); NEUT# 4.79 thou/uL (2.00-7.15); RED BLOOD COUNT 4.81 mill/uL (4.20-5.60)
[2019-02-09 13:55] LABS: ALBUMIN 4.3 g/dL (3.2-5.0); ALKALINE PHOSPHATASE 118 u/l (38-126); ANION GAP 14 (6-22 (CALC)); BILIRUBIN, TOTAL 0.5 mg/dL (0.0-1.4); BUN 8 mg/dL (7-17); BUN/CREATININE RATIO 14 (12-20 (CALC)); CARBON DIOXIDE 23 mmol/l (22-30); CHLORIDE 107 mmol/l (95-108); CREATININE 0.6 mg/dL (0.5-1.0); GFR > 60 ML/MIN (>=60 (CALC)); GFR FOR AFR.AMER. > 60 ML/MIN (>=60 (CALC)); POTASSIUM 4.5 mmol/l (3.5-5.1); SGOT/AST 27 u/l (14-36); SODIUM 139 mmol/l (137-146); TOTAL PROTEIN 8.2 g/dL (6.3-8.2)
[2019-02-09 14:08] LABS: MYOGLOBIN 42 ng/mL (0 - 62)
[2019-02-09 15:01] LABS: URINE BILIRUBIN - DIPSTICK NEGATIVE (NEGATIVE); URINE BLOOD DIPSTICK NEGATIVE (NEGATIVE); URINE COLOR YELLOW; URINE GLUCOSE - DIPSTICK NEGATIVE (NEGATIVE); URINE KETONE NEGATIVE (NEGATIVE); URINE LEUK ESTERASE NEGATIVE (NEGATIVE); URINE NITRITE - DIPSTICK NEGATIVE (Negative); URINE PROTEIN - DIPSTICK NEGATIVE (NEG-TRACE); URINE SPECIFIC GRAVITY <=1.005; URINE UROBILINOGEN - DIPSTICK 0.2 E.U./dL (0.2)
[2019-02-09] MEDS ORDERED: BUPROPION HCL300 MG PO (15:01)
[2019-02-09] MEDS ORDERED: ACYCLOVIR5 % (15:02)
[2019-02-09] MEDS ORDERED: HYDROCODONE BIT1 TA7 PO (15:02)
[2019-02-09] MEDS ORDERED: ACYCLOVIR200 MG PO (15:02)
[2019-02-09] MEDS ORDERED: PRAMIPEXOLE DI0.5 MG PO (15:03)
[2019-02-09] MEDS ORDERED: CYCLOBENZAPR10 MG PO (15:03)
[2019-02-09] MEDS ORDERED: NITRO-DUR0.2 MG/HR TD (15:04)
[2019-02-09] MEDS ORDERED: ASPIRIN LOW DOS81 M1 PO (15:04)
[2019-02-09] MEDS ORDERED: KENALOG15 GM/TUBE EX (15:05)
[2019-02-09] MEDS ORDERED: ZITHROMAX250 MG PO (15:18)
[2019-02-09] MEDS ORDERED: MEDDOSEPAK PO (15:18)
[2019-02-09] MEDS ORDERED: PROAIR HFA IN (16:30)
[2019-02-09 16:35] VITALS: BP 149/84
== END 2019-02-09 16:35 | disposition home or self-care (01) | DRG 153 ==
LOC: ED 11:53
PROVIDERS: Emergency Medicine
DX: J02.0 Streptococcal pharyngitis (principal); J45.909 Unspecified asthma, uncomplicated; I25.2 Old myocardial infarction; Z95.5 Presence of coronary angioplasty implant and graft

== ENCOUNTER 2019-08-01 10:23 | Emergency (ER) | payer BC, OTHER ==
[~2019-08-01 10:23] MED LIST changes: +ACYCLOVIR200 MG PO; +ACYCLOVIR5 %; +ASPIRIN LOW DOS81 M1 PO; +BUPROPION HCL300 MG PO; +CYCLOBENZAPR10 MG PO; +HYDROCODONE BIT1 TA7 PO; +KENALOG15 GM/TUBE EX; +NITRO-DUR0.2 MG/HR TD; +PRAMIPEXOLE DI0.5 MG PO
[2019-08-01] MEDS ORDERED: LORTAB 1010 MG PO (10:41)
[2019-08-01 11:44] LABS: HEMATOCRIT 40.5 % (37.0-47.0); HEMOGLOBIN 13.3 g/dl (12.0-16.0); IMMATURE GRANULOCYTES 0.5 % (0.0-5.0); MEAN CELL VOLUME 90.2 fL CALC (80.0-100.0); MEAN CORPUSCULAR HGB 29.6 pG CALC (26.0-32.0); MEAN CORPUSCULAR HGB CONC 32.8 g/dL CAL (32.0-36.0); NEUT# 8.51 thou/uL (2.00-7.15); RED BLOOD COUNT 4.49 mill/uL (4.20-5.60); RED CELL DISTRI WIDTH 13.5 % (11.5-15.5)
[2019-08-01 11:58] LABS: ALBUMIN 4.3 g/dL (3.2-5.0); ALKALINE PHOSPHATASE 119 u/l (38-126); ANION GAP 15 (6-22 (CALC)); BILIRUBIN, TOTAL 0.5 mg/dL (0.0-1.4); BUN 13 mg/dL (7-17); BUN/CREATININE RATIO 25 (12-20 (CALC)); CARBON DIOXIDE 20 mmol/l (22-30); CHLORIDE 108 mmol/l (95-108); CREATININE 0.5 mg/dL (0.5-1.0); GFR > 60 ML/MIN (>=60 (CALC)); GFR FOR AFR.AMER. > 60 ML/MIN (>=60 (CALC)); POTASSIUM 4.9 mmol/l (3.5-5.1); SGOT/AST 24 u/l (14-36); SODIUM 138 mmol/l (137-146); TOTAL PROTEIN 7.8 g/dL (6.3-8.2)
[2019-08-01] MEDS ORDERED: FLEXERIL PO (13:35)
[2019-08-01 14:08] VITALS: BP 155/97
[2019-08-01] MEDS ORDERED: ZOFRAN4 MG/TAB PO (15:37)
[2019-08-01] MEDS ORDERED: HYDROCO/APAP1 TA9 PO (15:37)
== END 2019-08-01 14:05 | disposition home or self-care (01) | DRG 556 ==
LOC: ED 10:23
PROVIDERS: Student in an Organized Health Care Education/Training Program
DX: M25.512 Pain in left shoulder (principal); G89.29 Other chronic pain

== ENCOUNTER 2020-01-26 13:24 | Emergency (ER) | payer OTHER ==
[~2020-01-26] VITALS: Ht 162.6 cm; Wt 90.9 kg
[~2020-01-26 13:24] MED LIST changes: +BUPROPION HCL150 M1 PO; -BUPROPION HCL300 MG PO; +HYDROCO/APAP1 TA9 PO; +ZOFRAN4 MG/TAB PO
[2020-01-26 14:02] LABS: HEMATOCRIT 41.9 % (37.0-47.0); HEMOGLOBIN 13.8 g/dl (12.0-16.0); IMMATURE GRANULOCYTES 0.2 % (0.0-5.0); MEAN CELL VOLUME 88.4 fL CALC (80.0-100.0); MEAN CORPUSCULAR HGB 29.1 pG CALC (26.0-32.0); MEAN CORPUSCULAR HGB CONC 32.9 g/dL CAL (32.0-36.0); NEUT# 6.56 thou/uL (2.00-7.15); RED BLOOD COUNT 4.74 mill/uL (4.20-5.60); RED CELL DISTRI WIDTH 13.7 % (11.5-15.5)
[2020-01-26 14:39] LABS: ANION GAP 9 (6-22 (CALC)); BUN 11 mg/dL (7-17); BUN/CREATININE RATIO 19 (12-20 (CALC)); CARBON DIOXIDE 22 mmol/l (22-30); CHLORIDE 109 mmol/l (95-108); CREATININE 0.6 mg/dL (0.5-1.0); GFR > 60 ML/MIN (>=60 (CALC)); GFR FOR AFR.AMER. > 60 ML/MIN (>=60 (CALC)); POTASSIUM 4.1 mmol/l (3.5-5.1); SODIUM 136 mmol/l (137-146)
[2020-01-26] MEDS ORDERED: CEPHALEXIN500 M1 PO ×2 (15:33→16:07)
[2020-01-26 15:40] VITALS: BP 170/89
== END 2020-01-26 15:50 | disposition left against medical advice (07) ==
LOC: ED 13:24
PROVIDERS: Family Medicine
DX: R07.9 Chest pain, unspecified (principal); S61.212A Laceration without foreign body of right middle finger without damage to nail, initial encounter; I10 Essential (primary) hypertension; E66.9 Obesity, unspecified; I35.1 Nonrheumatic aortic (valve) insufficiency; F41.9 Anxiety disorder, unspecified; J45.909 Unspecified asthma, uncomplicated; I25.2 Old myocardial infarction; Y00.XXXA Assault by blunt object, initial encounter; Y92.008 Other place in unspecified non-institutional (private) residence as the place of occurrence of the external cause; Z95.5 Presence of coronary angioplasty implant and graft; Z91.19 Patient's noncompliance with other medical treatment and regimen

== ENCOUNTER 2022-10-07 03:47 | Emergency (ER) | payer MEDICARE, MEDICAID ==
[~2022-10-07] VITALS: Ht 162.6 cm; Wt 88.0 kg
[2022-10-07] VITALS (9 sets, daily range): BP systolic 134–190; BP diastolic 57–96
[~2022-10-07 03:47] MED LIST changes: +CEPHALEXIN500 M1 PO
[2022-10-07] MEDS ORDERED: REPATHA SUR140 MG/ML (04:08)
[2022-10-07 04:23] LABS: BASO% 0.4 % (0-3); EOS% 3.6 % (0-8); HEMATOCRIT 38.7 % (37.0-47.0); HEMOGLOBIN 12.4 g/dl (12.0-16.0); IMMATURE GRANULOCYTES 0.2 % (0.0-5.0); LYMPH% 30.5 % (15-41); MEAN CELL VOLUME 91.3 fL CALC (80.0-100.0); MEAN CORPUSCULAR HGB 29.2 pG CALC (26.0-32.0); MONO% 7.6 % (2-13); NEUT# 6.49 thou/uL (2.00-7.15); NEUT% 57.7 % (42-76); RED BLOOD COUNT 4.24 mill/uL (4.20-5.60)
[2022-10-07 05:36] LABS: URINE BILIRUBIN - DIPSTICK Negative (NEGATIVE); URINE BLOOD DIPSTICK Trace-intact (NEGATIVE); URINE COLOR Yellow; URINE GLUCOSE - DIPSTICK Negative (NEGATIVE); URINE KETONE Negative (NEGATIVE); URINE LEUK ESTERASE Negative (NEGATIVE); URINE NITRITE - DIPSTICK Negative (Negative); URINE PH 5.5 (4.5-8.0); URINE PROTEIN - DIPSTICK Negative (NEG-TRACE); URINE UROBILINOGEN - DIPSTICK 0.2 E.U./dL (0.2)
[2022-10-07] MEDS ORDERED: DECADRON4 MG PO (06:28)
[2022-10-08] MEDS ORDERED: CYCLOBENZAPRINE10 MG PO (06:21)
[2022-10-08] MEDS ORDERED: DIAZEPAM5 MG PO (07:00)
== END 2022-10-07 06:36 | disposition home or self-care (01) ==
LOC: ED 03:47
PROVIDERS: Family Medicine
DX: S16.1XXA Strain of muscle, fascia and tendon at neck level, initial encounter (principal); I35.1 Nonrheumatic aortic (valve) insufficiency; J45.909 Unspecified asthma, uncomplicated; E06.3 Autoimmune thyroiditis; F41.9 Anxiety disorder, unspecified; F32.A Depression, unspecified; I25.2 Old myocardial infarction; X58.XXXA Exposure to other specified factors, initial encounter; Z95.5 Presence of coronary angioplasty implant and graft

== ENCOUNTER 2022-10-08 05:59 | Emergency (ER) | payer MEDICARE, MEDICAID ==
[~2022-10-08] VITALS: Ht 162.6 cm; Wt 88.0 kg
[~2022-10-08 05:59] MED LIST changes: +DECADRON4 MG PO; +REPATHA SUR140 MG/ML
[2022-10-08 06:10] VITALS: BP 178/94
[2022-10-08 06:13] VITALS: BP 165/88
[2022-10-08] MEDS ORDERED: CYCLOBENZAPRINE10 MG PO (06:21)
[2022-10-08 06:31] VITALS: BP 177/100
[2022-10-08] MEDS ORDERED: DIAZEPAM5 MG PO (07:00)
[2022-10-08 07:11] VITALS: BP 169/72
[2022-10-08 07:30] VITALS: BP 162/90
[2022-10-08 08:00] VITALS: BP 158/86
== END 2022-10-08 08:14 | disposition home or self-care (01) ==
LOC: ED 05:59
DX: S16.1XXA Strain of muscle, fascia and tendon at neck level, initial encounter (principal); I35.1 Nonrheumatic aortic (valve) insufficiency; E06.3 Autoimmune thyroiditis; J45.909 Unspecified asthma, uncomplicated; F41.9 Anxiety disorder, unspecified; F32.A Depression, unspecified; I25.2 Old myocardial infarction; X58.XXXA Exposure to other specified factors, initial encounter; Z95.5 Presence of coronary angioplasty implant and graft

== ENCOUNTER 2022-10-09 06:31 | Emergency (ER) | payer MEDICARE, MEDICAID ==
[~2022-10-09] VITALS: Ht 162.6 cm; Wt 88.0 kg
[2022-10-09] VITALS (11 sets, daily range): BP systolic 138–183; BP diastolic 80–107
[~2022-10-09 06:31] MED LIST changes: +CYCLOBENZAPRINE10 MG PO; +DIAZEPAM5 MG PO
[2022-10-09 08:37] LABS: ALBUMIN 3.9 g/dL (3.2-5.0); ALKALINE PHOSPHATASE 94 u/l (38-126); ANION GAP 12 (6-22 (CALC)); BILIRUBIN, TOTAL 0.3 mg/dL (0.02-1.3); BUN 19 mg/dL (7-17); BUN/CREATININE RATIO 28 (12-20 (CALC)); CARBON DIOXIDE 22 mmol/l (22-30); CHLORIDE 110 mmol/l (95-108); CREATININE 0.7 mg/dL (0.5-1.0); GFR FOR AFR.AMER. > 60 ML/MIN (>=60 (CALC)); GFR OTHER RACES > 60 ML/MIN (>=60 (CALC)); POTASSIUM 4.3 mmol/l (3.5-5.1); SGOT/AST 22 u/l (14-36); SODIUM 139 mmol/l (137-146); TOTAL PROTEIN 6.9 g/dL (6.3-8.2)
[2022-10-09 09:08] LABS: TSH, 3RD GENERATION 0.05 uIU/mL (0.47 - 4.68)
== END 2022-10-09 10:12 | disposition home or self-care (01) ==
LOC: ED 06:31
PROVIDERS: Family Medicine
DX: R94.6 Abnormal results of thyroid function studies (principal); I35.1 Nonrheumatic aortic (valve) insufficiency; F41.9 Anxiety disorder, unspecified; F32.A Depression, unspecified; J45.909 Unspecified asthma, uncomplicated; E06.3 Autoimmune thyroiditis; M79.7 Fibromyalgia; I25.2 Old myocardial infarction; Z95.5 Presence of coronary angioplasty implant and graft; Z20.822 Contact with and (suspected) exposure to COVID-19; E78.5 Hyperlipidemia, unspecified; I10 Essential (primary) hypertension; R73.9 Hyperglycemia, unspecified; R79.89 Other specified abnormal findings of blood chemistry

== ENCOUNTER 2022-10-10 06:39 | Emergency (ER) | payer MEDICARE, MEDICAID ==
[~2022-10-10] VITALS: Ht 162.6 cm; Wt 60.0 kg
[2022-10-10 06:49] VITALS: BP 175/94
[2022-10-10 07:01] VITALS: BP 159/80
[2022-10-10 07:16] VITALS: BP 126/106
[2022-10-10 07:31] VITALS: BP 180/99
[2022-10-10 07:46] VITALS: BP 176/92
== END 2022-10-10 07:45 | disposition home or self-care (01) ==
LOC: ED 06:39
DX: S16.1XXA Strain of muscle, fascia and tendon at neck level, initial encounter (principal); E06.3 Autoimmune thyroiditis; I35.1 Nonrheumatic aortic (valve) insufficiency; F41.9 Anxiety disorder, unspecified; J45.909 Unspecified asthma, uncomplicated; I25.2 Old myocardial infarction; F32.9 Major depressive disorder, single episode, unspecified; X58.XXXA Exposure to other specified factors, initial encounter; Z95.5 Presence of coronary angioplasty implant and graft

== ENCOUNTER 2023-03-29 16:50 | Emergency (ER) | payer MEDICARE, MEDICAID ==
[~2023-03-29] VITALS: Ht 162.6 cm; Wt 90.7 kg
[2023-03-29] VITALS (7 sets, daily range): BP systolic 129–150; BP diastolic 60–87
[2023-03-29 17:27] LABS: BASO% 0.3 % (0-3); EOS% 2.8 % (0-8); HEMATOCRIT 36.8 % (37.0-47.0); HEMOGLOBIN 11.6 g/dl (12.0-16.0); IMMATURE GRANULOCYTES 0.3 % (0.0-5.0); LYMPH% 20.3 % (15-41); MEAN CORPUSCULAR HGB 26.5 pG CALC (26.0-32.0); MEAN CORPUSCULAR HGB CONC 31.5 g/dL CAL (32.0-36.0); MONO% 5.2 % (2-13); NEUT# 8.26 thou/uL (2.00-7.15); NEUT% 71.1 % (42-76); RED BLOOD COUNT 4.38 mill/uL (4.20-5.60); RED CELL DISTRI WIDTH 15.7 % (11.5-15.5)
[2023-03-29 17:44] LABS: ALBUMIN 4.2 g/dL (3.2-5.0); ALKALINE PHOSPHATASE 87 u/l (38-126); ANION GAP 14 (6-22 (CALC)); BILIRUBIN, TOTAL 0.3 mg/dL (0.02-1.3); BUN 12 mg/dL (7-17); BUN/CREATININE RATIO 14 (12-20 (CALC)); CARBON DIOXIDE 22 mmol/l (22-30); CHLORIDE 110 mmol/l (95-108); CREATININE 0.9 mg/dL (0.5-1.0); GFR FOR AFR.AMER. > 60 ML/MIN (>=60 (CALC)); GFR OTHER RACES > 60 ML/MIN (>=60 (CALC)); POTASSIUM 3.8 mmol/l (3.5-5.1); SODIUM 142 mmol/l (137-146); TOTAL PROTEIN 7.3 g/dL (6.3-8.2)
[2023-03-29 17:52] LABS: SGOT/AST 39 u/l (14-36)
[2023-03-29] MEDS ORDERED: BENZONATATE200 MG PO (20:08)
[2023-03-29] MEDS ORDERED: ZYRTEC10 MG PO (20:08)
== END 2023-03-29 20:20 | disposition left against medical advice (07) ==
LOC: ED 16:50 → ED-I 19:50 → ED 20:20
PROVIDERS: Family Medicine
DX: R07.9 Chest pain, unspecified (principal); J06.9 Acute upper respiratory infection, unspecified; I25.110 Atherosclerotic heart disease of native coronary artery with unstable angina pectoris; I35.1 Nonrheumatic aortic (valve) insufficiency; I50.9 Heart failure, unspecified; E06.3 Autoimmune thyroiditis; I25.2 Old myocardial infarction; Z95.5 Presence of coronary angioplasty implant and graft; Z53.29 Procedure and treatment not carried out because of patient's decision for other reasons; Z20.822 Contact with and (suspected) exposure to COVID-19

== ENCOUNTER 2023-10-19 20:32 | Emergency (ER) | payer OTHER, MEDICARE, MEDICAID ==
[~2023-10-19] VITALS: Ht 162.6 cm; Wt 68.0 kg
[~2023-10-19 20:32] MED LIST changes: +BENZONATATE200 MG PO; +ZYRTEC10 MG PO
[2023-10-19] MEDS ORDERED: HYDROmorphone HCL 2 MG/AMP IV ONE (21:10)
[2023-10-19] MEDS ORDERED: SODIUM CHLORIDE 0.9% 1,000 ML IV ONE (21:10)
[2023-10-19] MEDS ORDERED: ACETAMINOPHEN 500 MG TAB PO ONE (21:10)
[2023-10-20] MEDS ORDERED: ORPHENADRINE100 MG PO (00:40)
[2023-10-20] MEDS ORDERED: TYLENOL500 MG PO (00:40)
[2023-10-20 01:15] VITALS: BP 141/65
== END 2023-10-20 01:15 | disposition home or self-care (01) | DRG 552 ==
LOC: ED 20:32
DX: S13.9XXA Sprain of joints and ligaments of unspecified parts of neck, initial encounter (principal); I50.9 Heart failure, unspecified; I25.2 Old myocardial infarction; Z95.5 Presence of coronary angioplasty implant and graft; V53.5XXA Driver of pick-up truck or van injured in collision with car, pick-up truck or van in traffic accident, initial encounter

== ENCOUNTER 2024-02-05 16:08 | Emergency (ER) | payer MEDICARE, MEDICAID, OTHER ==
[2024-02-05] VITALS (7 sets, daily range): BP systolic 137–149; BP diastolic 75–115
[~2024-02-05] VITALS: Ht 162.6 cm; Wt 87.0 kg
[~2024-02-05 16:08] MED LIST changes: +ORPHENADRINE100 MG PO; +TYLENOL500 MG PO
[2024-02-05 16:45] LABS: BASO% 0.3 % (0-3); EOS% 2.6 % (0-8); HEMATOCRIT 30.7 % (37.0-47.0); HEMOGLOBIN 9.2 g/dl (12.0-16.0); IMMATURE GRANULOCYTES 0.6 % (0.0-5.0); LYMPH% 17.9 % (15-41); MEAN CELL VOLUME 80.6 fL CALC (80.0-100.0); MEAN CORPUSCULAR HGB 24.1 pG CALC (26.0-32.0); MONO% 8.6 % (2-13); NEUT# 6.27 thou/uL (2.00-7.15); RED BLOOD COUNT 3.81 mill/uL (4.20-5.60); RED CELL DISTRI WIDTH 16.4 % (11.5-15.5)
[2024-02-05 16:58] LABS: ALBUMIN 4.3 g/dL (3.2-5.0); ALKALINE PHOSPHATASE 101 u/l (38-126); ANION GAP 14 (6-22 (CALC)); BUN 10 mg/dL (7-17); BUN/CREATININE RATIO 15 (12-20 (CALC)); CARBON DIOXIDE 23 mmol/l (22-30); CHLORIDE 105 mmol/l (95-108); CREATININE 0.7 mg/dL (0.5-1.0); ESTIMATED GFR 102 ML/MIN (>=90 (CALC)); POTASSIUM 4.1 mmol/l (3.5-5.1); SGOT/AST 29 u/l (14-36); SODIUM 138 mmol/l (137-146); TOTAL PROTEIN 7.6 g/dL (6.3-8.2)
[2024-02-05 16:59] LABS: BILIRUBIN, TOTAL 0.6 mg/dL (0.02-1.3)
[2024-02-05] MEDS ORDERED: BENZONATATE 200 MG/CAP PO ONE (20:15)
[2024-02-05] MEDS ORDERED: ALBUTEROL SULFATE 8 GM INH IN ONE (20:15)
[2024-02-05] MEDS ORDERED: VENTOLIN HFA IN (20:17)
[2024-02-05] MEDS ORDERED: BENZONATATE200 MG PO (20:17)
== END 2024-02-05 20:30 | disposition home or self-care (01) ==
LOC: ED 16:08
PROVIDERS: Family Medicine
DX: R07.9 Chest pain, unspecified (principal); I11.0 Hypertensive heart disease with heart failure; I50.9 Heart failure, unspecified; E11.9 Type 2 diabetes mellitus without complications; I25.2 Old myocardial infarction; Z95.5 Presence of coronary angioplasty implant and graft; I35.1 Nonrheumatic aortic (valve) insufficiency; Z20.822 Contact with and (suspected) exposure to COVID-19